=== PATIENT | female | born 1955 | race Caucasian/White ===

== ENCOUNTER 2021-04-18 14:43 | Outpatient (CLI) | payer MEDICARE | END 2021-04-18 14:44 | disposition home or self-care (01) | LOC: CSHMAMMO 14:43 | PROVIDERS: ATTEND Family Medicine | DX: Z12.31 Encounter for screening mammogram for malignant neoplasm of breast (principal) | CPT/HCPCS: 77063; 77067 ==

== ENCOUNTER 2022-07-27 09:46 | Outpatient (CLI) | payer MEDICARE | END 2022-07-27 09:47 | disposition home or self-care (01) | LOC: CSHMAMMO 09:46 | PROVIDERS: ATTEND Family Medicine | DX: Z12.31 Encounter for screening mammogram for malignant neoplasm of breast (principal); Z13.820 Encounter for screening for osteoporosis; M81.0 Age-related osteoporosis without current pathological fracture; N63.20 Unspecified lump in the left breast, unspecified quadrant; Z78.0 Asymptomatic menopausal state | CPT/HCPCS: 77063; 77067; 77080 ==

== ENCOUNTER 2024-06-30 07:08 | Outpatient (CLI) | payer MEDICARE ==
[2024-06-30] MEDS ORDERED: Iopamidol 300 61% 100 ML VIAL FS ONE (13:47)
== END 2024-06-30 07:09 | disposition home or self-care (01) ==
LOC: CSHCT 07:08
PROVIDERS: ATTEND Physician Assistant
DX: R10.11 Right upper quadrant pain (principal); R10.13 Epigastric pain; N28.9 Disorder of kidney and ureter, unspecified
CPT/HCPCS: 74178